=== PATIENT | female | born 1945 | race Caucasian/White ===

== ENCOUNTER 2016-08-05 10:55 | Observation (INO) | payer OTHER ==
--- NOTE | 2016-08-02 10:51 | CPEKG ---
Heart Rate: 59 RR Interval: 1017 P-R Interval: 172 QRSD Interval: 84 QT Interval: 452 QTC Interval: 448 P [place]: 19 QRS [place]: -14 T Wave [place]: 38 EKG Severity - NORMAL ECG - EKG Impression: SINUS RHYTHM Electronically Signed By: Malick Ramos 02-Aug-2016 15:42:31
[2016-08-05] MEDS ORDERED: LR 1,000 ML IV ONE (11:44)
[2016-08-05] MEDS ORDERED: LIDOCAINE 1% 5 ML SDV ID PRN (11:44)
[2016-08-05] MEDS ORDERED: SILVER NITRATE APPLICATOR 1 APPL TP ONE (12:46)
[2016-08-05] MEDS ORDERED: BUPIVACAINE 0.25% 30 ML SDV ONE (12:46)
[2016-08-05] MEDS ORDERED: MIDAZOLAM 2 MG/2 ML VIAL ONE (12:49)
[2016-08-05] MEDS ORDERED: GLYCOPYRROLATE 0.2 MG/1 ML VIAL ONE (12:51)
[2016-08-05] MEDS ORDERED: LIDOCAINE 2% 5 ML SDV ONE (12:51)
[2016-08-05] MEDS ORDERED: ROCURONIUM 100 MG/10 ML VIAL ONE (12:52)
[2016-08-05] MEDS ORDERED: fentaNYL 100 MCG/2 ML INJ ONE ×2 (12:53→14:18)
[2016-08-05] MEDS ORDERED: PROPOFOL 200 MG/20 ML VIAL ONE (12:53)
[2016-08-05] MEDS ORDERED: ONDANSETRON 4 MG/2 ML VIAL ONE (13:21)
[2016-08-05] MEDS ORDERED: DEXAMETHASONE 4 MG/ML VIAL ONE (13:22)
[2016-08-05] MEDS ORDERED: SURGIFLO MATRIX KIT WITH THROMBIN TP ONE (14:15)
[2016-08-05] MEDS ORDERED: ONDANSETRON 4 MG/2 ML VIAL IVP PRN (17:32)
[2016-08-05] MEDS ORDERED: HYDROCODONE/APAP 5/325 TAB PO PRN (17:32)
[2016-08-05] MEDS ORDERED: ONDANSETRON DISINTEGRATING 4 MG TAB PO PRN (17:32)
[2016-08-05] MEDS ORDERED: LR 1,000 ML IV SCH (18:00)
--- NOTE | 2016-08-05 20:22 | GOP ---
[f rep st] OPERATIVE REPORT DATE OF OPERATION: 08/05/2016 SURGEON: Belkys Crabtree MD STITCH BONDING MACHINE TENDER HELPER: Cha Graff MD. PREOPERATIVE DIAGNOSIS: Complex left ovarian cyst. POSTOPERATIVE DIAGNOSIS: Complex left ovarian cyst. PROCEDURE PERFORMED: Laparoscopic bilateral salpingo-oophorectomy. FINDINGS: 1. Exam under anesthesia revealed an anteverted uterus and no adnexal masses. 2. Intraoperative findings revealed a normal appearing right ovary and right fallopian tube and a normal appearing left fallopian tube. The left ovary was slightly increased in size and lobular appearing. Her uterus appeared normal. Of note, there were some darker spots within the right broad ligament and infundibulopelvic ligament which initially were thought to be dilated veins. However, during transection of the infundibulopelvic ligament, these lesions were inspected and they appeared to extrude a dark brown substance suspicious for endometriosis. SPECIMENS: Bilateral ovaries and fallopian tubes. ESTIMATED BLOOD LOSS: Less than 20 cc. INDICATIONS: Patient is a 70-year-old, menopausal female, who was found to have a complex left ovarian cyst measuring approximately 3 x 4 cm. She had preoperative CA-125 which was normal. She agreed to surgical removal of the left ovary, and desired removal of the right ovary as well. She had preoperative evaluation clearance by her primary care provider, Dr. Elkin Caraballo. DESCRIPTION OF PROCEDURE: The patient was taken to the operating room, where general anesthesia was found to be adequate. Patient was prepared and draped in normal sterile fashion in the dorsal lithotomy position. A single sided speculum was placed in the patient's vagina, and a single-tooth tenaculum was placed on the anterior lip of the cervix. A Yesy uterine manipulator was placed in the patient's cervix to provide a means to manipulate the uterus. Attention was then turned to the patient's abdomen where local anesthetic with a mixture of 0.25% Marcaine plain was injected in the patient's umbilicus. A vertical incision was made in the patient's umbilicus. A Veress needle was placed through this incision into the peritoneal cavity, and entry into the peritoneal cavity was confirmed with use of a water-filled syringe. The Veress needle was then attached to the CO2 gas, appropriate entry CO2 gas pressures were noted, and the abdomen was insufflated with gas until a pressure of 15 mmHg was obtained. The Veress needle was then removed, and a 10 mm trocar was placed through this incision into the peritoneal cavity under direct visualization with an Optiview trocar. The attention was then turned to the patient's left side, and she was placed in Trendelenburg positioning. A 5 mm skin incision was made after placement of local anesthetic approximately 2-3 cm superior and anterior to the anterior iliac spine on the left side. A 5 mm trocar was placed through this incision into the peritoneal cavity under direct visualization. In a similar fashion, on the right side, a 5 mm skin incision was made. A 5mm trocar was placed through the incision into the peritoneal cavity under direct visualization. The patient was then placed into further Trendelenburg positioning, and the pelvis and abdomen were surveyed. It was difficult to get the bowel to stay out of the deep pelvis, and her uterus was very small deep in the pelvis. Therefore, decision was made to place another trocar in the midline in order to have better use of instrumentation to keep the bowel out of the pelvis during the surgery. Another 5 mm incision was placed 2 cm above the pubic symphysis in the midline. The use of anesthetic was used here as well. A 5 mm trocar was placed through this incision and into the peritoneal cavity under direct visualization. The bowel was then held out of the pelvis with a blunt probe. The right fallopian tube was grasped and the tube and ovary were elevated. An attempt was made to visualize the ureter, but it was difficult to see, due to increased fat under the peritoneal layer. The infundibulopelvic ligament was grasped, cauterized, and transected with the PK Gyrus. The infundibulopelvic ligament was then completely transected with the Gyrus, and the ovary and tube were then excised from their attachments from the mesosalpinx and the utero- ovarian ligament. It was detached from all its attachments, and hemostasis was assured. The 10 mm scope was switched out for a 5 mm scope. The EndoCatch bag was placed through the 10 mm port, and the tube and ovary were removed through the umbilical 10 mm incision without complications. The trocar was then replaced easily, and attention was then turned to the patient's left side. Once again, the blunt probe was used to gently hold the bowel out of the way, away from the area of dissection on the left side. The left fallopian tube was grasped, and the tube and ovary elevated. The left ureter was visualized clearly. The infundibular ligament was clamped, coagulated, and transected. The tube and ovary were then removed from all of its attachments along the mesosalpinx and the utero-ovarian ligament on the left side. Hemostasis was clearly visualized along these pedicles. During this dissection, there was some bright red bleeding noted in the pelvis underneath this area of dissection , and it was clear that this bleeding was not coming from the pelvic ligaments that were just transected as there was no bleeding noted from the pedicles. Careful inspection was completed, and it was noted that there was a very small tear in the mesentery of the small bowel on the left side that was initially bleeding. It was bleeding very slowly, and the decision was made to remove the left tube and ovary which was completed using an EndoCatch bag with no complications. Of note, during the removal of the left ovary, it was removed through the umbilical incision, and in order to get it through the incision, it was drained within the EndoCatch bag using a 10 cc syringe and appropriate needle. The fluid drained from the cyst was also sent for cytology. The fascial incision was extended slightly with the angel scissors inferiorly, and then the specimen was removed. After removal, the trocar was replaced and pelvis surveyed. On reinspection of the area that had started to have a small amount of bleeding around the mesentery of the bowel, the decision was made to have an intraoperative consult with Dr. Jyoti Hutchins. She was contacted and consulted. While waiting 10-15 minutes for her arrival, the area of concern had stopped bleeding. She arrived in the operating room and visualized the area of concern. She visualized the area clearly with us and indicated that there was no further action needed. We already had some Surgicel up on the operating room table, so decided to place this in this area to assure hemostasis. All pedicles were examined closely, and noted to be hemostatic. All trocars were then removed under direct visualization other than the umbilical port which was removed without any issues. The gas was allowed to escape from her abdomen. The fascia from the 10mm incision was closed with a running, locked stitch of 0-vicryl. All skin incisions were closed with 4-0 monocryl. Steri- Strips and bandage dressings were placed. All instruments were removed from the patient's vagina, and hemostasis was obtained at the tenaculum site with silver nitrate. All sponge, lap, and needle counts correct x2. Patient was transferred to the PACU in stable good condition. INTRAOPERATIVE DIRECTOR GLOBAL: Dr. Jyoti Hutchins. COMPLICATIONS: None. DRAINS: None. IV FLUIDS: 600 cc. URINE OUTPUT: 75 cc. /[id number]/MODL MTDD
[2016-08-06] MEDS: KETOROLAC 15 MG/1 ML SDV IVP SCH ×4 (03:18→11:13)
[2016-08-06 06:20] LABS: HEMOGLOBIN 13.9 g/dL (12.6-16.3)
--- NOTE | 2016-08-06 08:44 | SOAPPROG ---
SOAP Progress Note Assessment/Plan: Assessment: 70 y/o POD#1 s/p L/S BSO - hemodynamically stable and doing well Plan: 1) Routine postop care 2) O2 sats - weaning off O2. Only on 1L per NC now. Will wean off O2 and discharge home if able to wean off and keep normal O2 sats on RA. 3) RX for pain (motrin and norco) already given 4) Discharge home pending O2 sat evaluation, and f/u in 4-5 days. Pain/bleeding /fever precautions 08/06/16 08:41 Subjective: Pt ambulating, voiding spontaneously, pain well controlled with only gas-x, and no complaints. No SOB/chest pain/leg pain. Objective: Vital Signs Temp Pulse Resp BP Pulse Ox 36.1 C 62 16 140/76 H 95 08/06/16 06:00 08/06/16 06:00 08/06/16 06:00 08/06/16 06:00 08/06/16 06:00 Laboratory Results 08/06/16 06:00 08/05/16 08/06/16 08/07/16 05:59 05:59 05:59 Intake Total 1500 Output Total 670 Balance 830 Physical Exam - Physical Exam General Appearance: WD/WN, alert, no apparent distress Respiratory: lungs clear Cardiac/Chest: regular rate, rhythm Abdomen: normal bowel sounds, non-tender, soft, other (incisions: bandages c/d/i ) Pelvic Exam: deferred ICD10 Worksheet Patient Problems: Problems Problem Status Diagnosed S/P BSO (status post bilateral salpingo-oophorectomy) Acute - ICD10 Problem Qualifiers (1) S/P BSO (status post bilateral salpingo-oophorectomy)
[2016-08-06 11:26] VITALS: BP 147/72; PULSE 68; RESP 19; TEMP 97.2; O2SAT 93
[2016-08-06] MEDS ORDERED: PNEUMOC 13-VAL CONJ-DIP CRM/PF 0.5 ML SYR IM ONE (13:23)
[2016-08-06] MEDS ORDERED: IBUPROFEN 600 MG TAB PO SCH (17:35)
== END 2016-08-06 14:20 | disposition home or self-care (01) ==
LOC: FSGY 10:55 → F3E 17:32 → FOB 18:30
PROVIDERS: ADMIT Obstetrics & Gynecology; ATTEND Obstetrics & Gynecology
PROC: 0UT74ZZ Resection of Bilateral Fallopian Tubes, Percutaneous Endoscopic Approach (ICD-10-PCS; principal; 2016-08-05 12:30)
PROC: 0UT24ZZ Resection of Bilateral Ovaries, Percutaneous Endoscopic Approach (ICD-10-PCS; principal; 2016-08-05 12:30)
DX: N83.202 Unspecified ovarian cyst, left side (principal); G35 Multiple sclerosis; Z23 Encounter for immunization
CPT/HCPCS: 58661; 88305; 88307; 90670; 93005; G0009; J1100; J1885; J2250; J2405; J2704; J3010

== ENCOUNTER 2016-08-12 18:19 | Emergency (ER) | payer OTHER ==
[2016-08-12 18:29] VITALS: TEMP 99.7; O2SAT 94
--- NOTE | 2016-08-12 19:09 | EDPHY ---
HPI/HX/ROS/PE/MDM Narrative: Chief complaint: Fever, cough, surgical site infection HPI: This is a 70-year-old woman who is status post bilateral oophorectomy for what turned out to be benign cysts by Dr. Crabtree 7 days ago. Since discharge she has had a persistent dry cough with occasional white heel sputum. She has been taking Mucinex for this with some relief. Two days ago she was noted to have a temperature of 99.7. She spoke with the on-call for Dr. edmonds was instructed to take acetaminophen and continue the Mucinex and follow up with Dr. edmonds should the symptoms persist. Yesterday she was feeling well but did have a temperature to 99. Today she had a follow-up with Dr. edmonds was noted to have an infection at her surgical site was started on Keflex. This afternoon she developed a temperature to 101. Has not had any chest pain or shortness of breath. No nausea vomiting or diarrhea. Has redness around her incision site but no discharge. She does state that she did have a pneumonia shot on the day of discharge after her surgery. She has had her flu shot this year. ROS: 10 point Review of Systems is negative except as noted in the HPI. Physical exam: Gen: Awake, Alert, No Distress HEENT: Nose: no rhinorrhea Eyes: PERRLA, EOMI Mouth: Moist mucosa Neck: Supple, no JVD Chest: nontender, lungs clear to auscultation Heart: S1, S2 normal, no murmur Abd: Soft, for surgical incisions. The umbilical is erythematous with demarcations from earlier today with the erythema spreads beyond this. There is mild fluctuance. There is no discharge or dehiscence. Remainder abdominal exam is completely soft and benign. Back: no CVA tenderness, no midline tenderness Ext: no edema, non-tender Skin: no rash Neuro: CN II-XII intact, Sensation grossly intact, Strength 5/5 in bilateral upper and lower extremities ED Course: CXR: Impression: 1. No evidence for pneumonia or source for fever identified. 2. Chronic cardiomegaly without cardiac decompensation. Dictated By: Tyrone Day MD CBC is normal, urinalysis is consistent with infection but there are some epithelial cells. Chest x-ray is negative. D-dimer is noted to be elevated which I would expect secondary to her surgery but her respiratory symptoms are concerning for the possibility of a PE. I have discussed with her and with Dr. edmonds. They agree that we will obtain a CT scan her chest to rule out PE. I have done a bedside ultrasound which shows no evidence of a collection. CT chest shows no evidence of PE. There is some coronary artery disease in the LAD. There is an anterior mediastinal soft tissue cystic mass which measures 3.6 cm. This is unchanged from an MRI from a year ago which was read as a likely benign cystic mass at that time. This study was interpreted by Dr. Day. I have discussed with Dr. Crabtree, patient's OBGYN. She is in agreement with the plan a given there is no focal source of infection other than the cellulitis at the incision site found will continue with oral antibiotics. Will add on Bactrim for MRI say coverage. Patient is otherwise well-appearing with no white count at this time. There is equivocal urinalysis which will be covered with the Keflex she is taking already. Urine culture has been sent. She will follow up with Dr. Crabtree at noon tomorrow for re-evaluation. - Data Points Laboratory Results: Laboratory Results 08/12/16 19:10 08/12/16 19:10 08/12/16 08/12/16 08/12/16 19:30 19:20 19:10 WBC 7.16 10^3/uL (3.80-9.50) RBC 4.36 10^6/uL (4.18-5.33) Hgb 12.1 L g/dL (12.6-16.3) Hct 35.7 L % (38.0-47.0) MCV 81.9 fL (81.5-99.8) MCH 27.8 L pg (27.9-34.1) MCHC 33.9 g/dL (32.4-36.7) RDW 14.6 % (11.5-15.2) Plt Count 270 10^3/uL (150-400) MPV 10.6 fL (8.7-11.7) Neut % (Auto) 63.4 % (39.3-74.2) Lymph % (Auto) 21.1 % (15.0-45.0) Riley % (Auto) 13.7 H % (4.5-13.0) Eos % (Auto) 1.1 % (0.6-7.6) Baso % (Auto) 0.4 % (0.3-1.7) Nucleat RBC Rel Count 0.0 % (0.0-0.2) Absolute Neuts (auto) 4.54 10^3/uL (1.70-6.50) Absolute Lymphs (auto) 1.51 10^3/uL (1.00-3.00) Absolute Monos (auto) 0.98 H 10^3/uL (0.30-0.80) Absolute Eos (auto) 0.08 10^3/uL (0.03-0.40) Absolute Basos (auto) 0.03 10^3/uL (0.02-0.10) Absolute Nucleated RBC 0.00 10^3/uL (0-0.01) Immature Gran % 0.3 % (0.0-1.1) Immature Gran # 0.02 10^3/uL (0.00-0.10) D-Dimer 1.48 H ug/mLFEU (0.00-0.50) Sodium 137 mEq/L (134-144) Potassium 3.9 mEq/L (3.5-5.2) Chloride 105 mEq/L (97-110) Carbon Dioxide 22 mEq/l (22-31) Anion Gap 10 mEq/L (8-16) BUN 21 mg/dL (7-23) Creatinine 0.7 mg/dL (0.6-1.0) Estimated GFR > 60 Glucose 92 mg/dL (70-100) Calcium 9.2 mg/dL (8.5-10.4) Urine Color YELLOW Urine Appearance MODERATELY TURBID Urine pH 5.0 (5.0-7.5) Ur Specific [place] 1.034 H (1.002-1.030) Urine Protein 1+ H (NEGATIVE) Urine Ketones NEGATIVE (NEGATIVE) Urine Blood 2+ H (NEGATIVE) Urine Nitrate NEGATIVE (NEGATIVE) Urine Bilirubin NEGATIVE (NEGATIVE) Urine Urobilinogen NEGATIVE EU (0.2-1.0) Ur Leukocyte Esterase 2+ H (NEGATIVE) Urine RBC 50-182 H /hpf (0-3) Urine WBC 50-182 H /hpf (0-3) Ur Epithelial Cells 1+ /lpf (NONE-1+) Urine Bacteria 1+ H /hpf (NONE SEEN) Urine Mucus 1+ /lpf (NONE-1+) Urine Glucose NEGATIVE (NEGATIVE) Influenza A & B (PCR) NEGATIVE FOR FLU (NEGATIVE) General Time Seen by Provider: 08/12/16 18:43 Initial Vital Signs: Initial Vital Signs Temperature (C) 37.6 C 08/12/16 18:23 Heart Rate 92 08/12/16 18:23 Respiratory Rate 18 08/12/16 18:23 Blood Pressure 162/75 H 08/12/16 18:23 O2 Sat (%) 94 08/12/16 18:23 O2 Delivery Mode Room Air Allergies/Adverse Reactions: No Known Allergies Allergy (Unverified 10/21/14 14:56) Home Medications: Medication Instructions Recorded Carvedilol [Coreg (*)] 6.25 mg PO BIDMEAL 07/28/16 Omeprazole 20 mg PO DAILY 07/28/16 amLODIPine BESYLATE [Norvasc 2.5 2.5 mg PO BID 07/28/16 mg (*)] Ibuprofen [Motrin (*)] 600 mg PO Q6HRS #0 tab 08/06/16 Aspirin EC [Aspirin EC 81 mg (*)] 81 mg PO DAILY 08/12/16 Cephalexin [Keflex (*)] 500 mg PO Q6H 08/12/16 Darifenacin Hydrobromide [Enablex] 15 mg PO HS 08/12/16 Escitalopram Oxalate [Lexapro] 5 mg PO DAILY 08/12/16 Interferon Beta-1B [Betaseron] 0.3 mg SQ Q48H 08/12/16 Simvastatin [Zocor] 20 mg PO HS 08/12/16 Departure - Departure Disposition: Home, Routine, Self-Care Clinical Impression: Fever Condition: Good Instructions: Fever in Adults (ED), Cellulitis (ED) Additional Instructions: Please follow up with Cardiology for further evaluation of the abnormal findings on her CT scan of her coronary artery disease. Follow up with Dr. Crabtree at noon tomorrow. Take your Keflex and add on Bactrim for treatment of your cellulitis. Return to the emergency depart for increasing fevers or chills, worsening pain, opening of your wounds, or any other concerns. Referrals: Belkys Crabtree MD [Medical Doctor] - As per Instructions
[2016-08-12 19:23] LABS: % IMMATURE GRANULYOCYTES 0.3 % (0.0-1.1); ABSOLUTE IMMATURE GRANULOCYTES 0.02 10^3/uL (0.00-0.10); ADD DIFF? NO; ADD MORPH? NO; ADD SCAN? NO; ATYPICAL LYMPHOCYTE FLAG 20 (0-99); FRAGMENT RBC FLAG 0 (0-99); HEMATOCRIT 35.7 % (38.0-47.0); HEMOGLOBIN 12.1 g/dL (12.6-16.3); LEFT SHIFT FLG 0 (0-99); LIPEMIA HEMOLYSIS FLAG 90 (0-99); MEAN CELL HEMOGLOBIN 27.8 pg (27.9-34.1); MEAN CELL HEMOGLOBIN CONCENTR. 33.9 g/dL (32.4-36.7); MEAN CELL VOLUME 81.9 fL (81.5-99.8); MEAN PLATELET VOLUME 10.6 fL (8.7-11.7); PLATELET CLUMPS FLAG 10 (0-99); PLATELET COUNT 270 10^3/uL (150-400); RED BLOOD CELL COUNT 4.36 10^6/uL (4.18-5.33); RED CELL DISTRIBUTION WIDTH 14.6 % (11.5-15.2)
--- NOTE | 2016-08-12 19:32 | DX ---
Chest, PA and Lateral History: Fever and cough, postoperative, possible infection of surgical incision below naval COMPARISON: 05/26/15 and 03/27/15 Findings: There is mild cardiomegaly and normal pulmonary vascularity. Perihilar bronchial wall thick ening is chronic or recurrent and suggest underlying COPD considering the mildly prominent lung volum es. There is no focal infiltrate, consolidation or pleural effusion. There is stable atherosclerotic calcification of a normal sized abdominal aorta. Impression: 1. No evidence for pneumonia or source for fever identified. 2. Chronic cardiomegaly without cardiac decompensation.
[2016-08-12 19:37] LABS: ANION GAP 10 mEq/L (8-16); CALCIUM 9.2 mg/dL (8.5-10.4); CARBON DIOXIDE 22 mEq/l (22-31); CHLORIDE 105 mEq/L (97-110); CREATININE 0.7 mg/dL (0.6-1.0); GLOMERULAR FILTRATION RATE > 60; GLUCOSE 92 mg/dL (70-100); POTASSIUM 3.9 mEq/L (3.5-5.2); SODIUM 137 mEq/L (134-144)
[2016-08-12 19:38] LABS: COLOR YELLOW; LEUKOCYTE ESTERASE,URINE 2+ (NEGATIVE); NITRITE,URINE NEGATIVE (NEGATIVE)
[2016-08-12 19:40] LABS: BACTERIA 1+ /hpf (NONE SEEN); MUCUS 1+ /lpf (NONE-1+); RBC,URINE 50-182 /hpf (0-3); WBC,URINE 50-182 /hpf (0-3)
[2016-08-12] MEDS ORDERED: IOPAMIDOL (ISOVUE 370) 100 ML BTL IV ONE (20:18)
--- NOTE | 2016-08-12 22:09 | CT ---
Chest CT With IV Contrast , 21:11 History: Elevated d-dimer, abdominal surgery one week ago, chest pain, possible pulmonary embolism. Technique: Ultrafast ultrathin [address] obtained through the chest after bolus administra tion of 90 mL of Isovue 370 nonionic contrast without complication. Soft tissue and bone window evalu ation is performed. Dose reduction techniques were utilized. Comparison: Chest x-ray earlier at 18:49 CT Chest: Findings: There is a 2.5 x 2.9 cm anterior mediastinal solid mass with average Hounsfield units 55. T his was demonstrated to be cystic on an MRI of the chest in May 2015. There is no other mediasti nal or hilar adenopathy. There is no axillary or internal mammary adenopathy. There is no evidence of pneumonia, pleural effusion or pneumothorax. Heart size is normal and there is no pericardial effusi on. There is LAD coronary artery disease. The thoracic aorta is normal in size and associated with so me mild mural atherosclerotic disease, but no evidence for dissection. Incidentally noted is a single small calcified granuloma in the left lower lobe. Limited scans through the upper abdomen are negati ve. Impression: 1. LAD coronary artery disease. 2. Solid anterior mediastinal mass. Not significantly changed in size since MRI of the chest June 06, 2015. CT Pulmonary Angiogram: Technique: Multiplanar and 3D reconstructions are reviewed on an independent 3D workstation. Findings: No filling defects or mural thickening is detected. Specifically, no evidence for pulmonary embolism. Right-sided heart chambers are not dilated and the interventricular septum has normal morp hology. 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 Impression: No evidence for pulmonary embolic disease. Results discussed with Dr. Zelaya at 10:04 PM. General information for patients regarding this examination can be found at [email or web address]. If you have questions or comments about this report, please contact me at [phone] (hospital) or [phone] (cell).
[2016-08-12] MEDS ORDERED: SULFAMET/TMP DS PREPACK#2 BTL TAKEHOME ONE (22:28)
[2016-08-12 22:30] VITALS: BP 155/98; PULSE 78; RESP 16
== END 2016-08-12 22:46 | disposition home or self-care (01) ==
DX: R50.9 Fever, unspecified (principal); Z79.82 Long term (current) use of aspirin
CPT/HCPCS: 71020; 71275; 99285; Q9967

== ENCOUNTER 2016-08-16 18:28 | Inpatient (IN) | payer OTHER ==
[2016-08-16] MEDS ORDERED: ACETAMINOPHEN 325 MG TAB PO PRN (18:52)
[2016-08-16] MEDS ORDERED: IBUPROFEN 200 MG TAB PO PRN (18:52)
[2016-08-16] MEDS ORDERED: PROMETHAZINE HCL 25 MG TAB PO PRN (18:52)
[2016-08-16] MEDS ORDERED: HYDROCODONE/APAP 5/325 TAB PO PRN (18:52)
[2016-08-16] MEDS ORDERED: diphenhydrAMINE 25 MG CAP PO PRN (18:52)
--- NOTE | 2016-08-16 19:56 | GHP ---
[f rep st] HISTORY AND PHYSICAL DATE OF ADMISSION: 08/16/2016 CHIEF COMPLAINT: Leakage of drainage from her incision. HISTORY OF PRESENT ILLNESS: The patient is a 70-year-old, 3, para 2, abortus 1, menopausal female who presents postoperatively after a laparoscopic bilateral salpingo-oophorectomy on August 05, 2016, with complaints of drainage from her incision. She has been seen twice in clinic since her surgery on August 12 and and diagnosed with a wound infection. She was initially started on Keflex antibiotics for erythema and induration around the incision. At that time, she had not yet had any fevers postoperatively. She subsequently had a fever to 101F within 24 hours of starting the Keflex. She went to the emergency room for evaluation on the and she was afebrile at that time, and had a negative workup to include normal serum labs showing a normal white blood cell count and normal chest x-ray, and a negative CT scan of her chest that was negative for a pulmonary embolism. She was given the addition of Bactrim to take orally to cover the risk of possible MRSA infection. She subsequently reported doing well over the next 3 days, until the day of admission, when she reports that she woke up with noted drainage from her incision. She reports that it is not purulent and that it is brownish red in color. She denies having any fevers since her ER visit and since starting the Bactrim. She reports that her incision is not significantly improving but it is not painful to the point of requiring pain medications. She has no other complaints. She denies any shortness of breath, chest pain, or leg pain. She is ambulating without difficulty, and denies any bowel or bladder changes. REVIEW OF SYSTEMS: Negative other than what was mentioned in the history of present illness. PAST MEDICAL HISTORY: Multiple sclerosis, diverticulosis and history of ischemic colitis in 2001, hypertension, Graves disease, and depression. PAST SURGICAL HISTORY: History of total knee replacement in 2011 and her recent laparoscopic bilateral salpingo-oophorectomy. FAMILY HISTORY: Not contributory. SOCIAL HISTORY: Patient has a history of tobacco use but quit. She is and not sexually active. She has 2 children and her daughter lives locally. PHYSICAL EXAMINATION: VITAL SIGNS: Blood pressure 146/74, pulse 80, temperature 97.7 degrees Fahrenheit. GENERAL: No acute distress. Well-developed, well-nourished female. RESPIRATORY: Clear to auscultation bilaterally. CARDIOVASCULAR: Regular rate and rhythm. ABDOMEN: The patient is obese. Her lateral and lower incisions are all clean, dry, and intact. The Steri-Strips were removed. Her umbilical incision is erythematous, indurated with an area of erythema measuring approximately 4-5 cm in diameter. It is not significantly changed from last week and, in fact, there appears to be slight blotching of the skin inferiorly on the diagonal toward her right side. The incision had a Steri-Strip over it and that was removed. The wound culture was obtained from the serosanguineous drainage that was present. There was a very little amount of fluid noted and the area is not fluctuant to palpation. There was a small amount of oozing of dark brown, watery fluid that was wiped away with a gauze. The incision itself was probed and there was no opening of the incision present. Careful attention was made to visualize the inferior aspect of the incision and deep in the umbilicus and there was no visible opening that could be probed or appeared to need to be opened further. Silver nitrate was applied to the surface where there was a small amount of pink granulation tissue that was deep in the umbilicus. No further bleeding or drainage was noted. ASSESSMENT: Patient is a 70-year-old female, postop day #11 status post a laparoscopic bilateral salpingo-oophorectomy complicated by a wound infection that has failed outpatient medical management. PLAN: 1. Admit for observation and possible further inpatient care if needed. 2. Antibiotic coverage: Consulted Infectious Disease physician on-call, Dr. Harrison Huntley, for his recommendations for the ideal antibiotic choice. He discussed the plan for initiating vancomycin. We will initiate IV vancomycin and await Gram stain, culture results. 3. History of hypertension. Will continue her home medications. No acute issues. 4. History of multiple sclerosis, no acute issues. 5. Acid reflux. We will continue her proton pump inhibitor. 6. DVT prophylaxis with SCDs. 7. Counseling. The patient was counseled regarding the plan of care and all questions were answered. Offered to speak with her daughter and she reports she will call her herself today and I indicated I was available if desired to discuss her situation. /[id number]/MODL MTDD
[2016-08-16] MEDS: CARVEDILOL 6.25 MG TAB PO SCH (21:46)
[2016-08-16] MEDS: FAMOTIDINE 20 MG TAB PO SCH (21:46)
[2016-08-16 22:22] LABS: % IMMATURE GRANULYOCYTES 0.3 % (0.0-1.1); ABSOLUTE IMMATURE GRANULOCYTES 0.02 10^3/uL (0.00-0.10); ADD DIFF? NO; ADD MORPH? NO; ADD SCAN? YES; FRAGMENT RBC FLAG 0 (0-99); HEMATOCRIT 34.6 % (38.0-47.0); HEMOGLOBIN 11.5 g/dL (12.6-16.3); LEFT SHIFT FLG 0 (0-99); LIPEMIA HEMOLYSIS FLAG 80 (0-99); MEAN CELL HEMOGLOBIN 28.1 pg (27.9-34.1); MEAN CELL HEMOGLOBIN CONCENTR. 33.2 g/dL (32.4-36.7); MEAN CELL VOLUME 84.6 fL (81.5-99.8); MEAN PLATELET VOLUME 10.3 fL (8.7-11.7); PLATELET CLUMPS FLAG 0 (0-99); PLATELET COUNT 283 10^3/uL (150-400); RED BLOOD CELL COUNT 4.09 10^6/uL (4.18-5.33); RED CELL DISTRIBUTION WIDTH 14.8 % (11.5-15.2)
[2016-08-16 22:23] LABS: ATYPICAL LYMPHOCYTE FLAG 100 (0-99)
[2016-08-16 22:48] LABS: ANION GAP 11 mEq/L (8-16); CALCIUM 8.9 mg/dL (8.5-10.4); CARBON DIOXIDE 23 mEq/l (22-31); CHLORIDE 104 mEq/L (97-110); CREATININE 0.9 mg/dL (0.6-1.0); GLOMERULAR FILTRATION RATE > 60; GLUCOSE 104 mg/dL (70-100); POTASSIUM 3.8 mEq/L (3.5-5.2); SODIUM 138 mEq/L (134-144)
[2016-08-16] MEDS: VANCOMYCIN 1 GM in NS 250 ML IV SCH (23:10)
[2016-08-17 01:03] LABS: SCAN NEGATIVE
[2016-08-17 06:02] LABS: % IMMATURE GRANULYOCYTES 0.3 % (0.0-1.1); ABSOLUTE IMMATURE GRANULOCYTES 0.02 10^3/uL (0.00-0.10); ADD DIFF? NO; ADD MORPH? NO; ADD SCAN? NO; ATYPICAL LYMPHOCYTE FLAG 70 (0-99); FRAGMENT RBC FLAG 0 (0-99); HEMATOCRIT 35.6 % (38.0-47.0); HEMOGLOBIN 12.3 g/dL (12.6-16.3); LEFT SHIFT FLG 0 (0-99); LIPEMIA HEMOLYSIS FLAG 90 (0-99); MEAN CELL HEMOGLOBIN 28.9 pg (27.9-34.1); MEAN CELL HEMOGLOBIN CONCENTR. 34.6 g/dL (32.4-36.7); MEAN CELL VOLUME 83.6 fL (81.5-99.8); MEAN PLATELET VOLUME 10.4 fL (8.7-11.7); PLATELET CLUMPS FLAG 0 (0-99); PLATELET COUNT 315 10^3/uL (150-400); RED BLOOD CELL COUNT 4.26 10^6/uL (4.18-5.33); RED CELL DISTRIBUTION WIDTH 14.9 % (11.5-15.2)
[2016-08-17 06:21] LABS: ANION GAP 10 mEq/L (8-16); CALCIUM 9.4 mg/dL (8.5-10.4); CARBON DIOXIDE 22 mEq/l (22-31); CHLORIDE 110 mEq/L (97-110); CREATININE 0.8 mg/dL (0.6-1.0); GLOMERULAR FILTRATION RATE > 60; GLUCOSE 91 mg/dL (70-100); POTASSIUM 4.7 mEq/L (3.5-5.2); SODIUM 142 mEq/L (134-144)
[2016-08-17] MEDS ORDERED: CARVEDILOL 3.125 MG TAB PO SCH (08:00)
[2016-08-17] MEDS: FAMOTIDINE 20 MG TAB PO SCH (09:09)
[2016-08-17] MEDS: MULTIVITAMINS 1 EACH TAB PO SCH (09:09)
[2016-08-17] MEDS: CARVEDILOL 6.25 MG TAB PO SCH ×3 (09:09→23:15)
[2016-08-17] MEDS: VANCOMYCIN 1 GM in NS 250 ML IV SCH ×2 (10:46→23:00)
[2016-08-17 18:18] VITALS: RESP 18
--- NOTE | 2016-08-17 18:26 | SOAPPROG ---
SOAP Progress Note Assessment/Plan: Assessment: 70 y/o female POD#12 (HD#2) s/p L/S BSO complicated by wound cellulitis and hematoma - hemodynamically stable and afebrile Plan: 1) Wound cellulitis: Gram stain and wound culture #[address] Hardin showed gram + cocci, gram+ rods and +PMNs; prelim = mixed positive growth. Will continue w/ vancomycin until final results are back. 2) Wound hematoma: Wound opened this AM w/ probing. Continue packing & dressing changes TID for now. 3) HTN - mild elevations, stable, continue home meds. 4) DVT prophylaxis w/ SCDs and ambulation 5) Counseling: Counseled patient regarding the diagnosis, plan of care. Called her daughter, Romina Fraire, and left her a voicemail regarding patient's status (w/ patient's permission). 08/17/16 18:29 Subjective: Pt reports feeling well this morning. She reports the wound is still draining mostly brown tinged fluid. No fevers, chills, shortness of breath, chest pain or leg pain. She denies any pain around the incision. Not needing pain medication. Objective: Vital Signs Temp Pulse Resp BP Pulse Ox 36.7 C 71 18 150/63 H 94 08/17/16 16:00 08/17/16 16:00 08/17/16 16:00 08/17/16 16:00 08/17/16 16:00 Laboratory Results 08/17/16 04:58 08/17/16 04:58 08/16/16 08/17/16 08/18/16 05:59 05:59 05:59 Intake Total 270 Balance 270 - Time Spent With Patient Time Spent With Patient: 30 minutes - Pending Discharge Pending Discharge Within 48 Hours: Yes Pending Discharge Date: 08/19/16 Pending Discharge Time: 11:00 Physical Exam - Physical Exam General Appearance: WD/WN, alert, no apparent distress Respiratory: lungs clear Cardiac/Chest: regular rate, rhythm Abdomen: normal bowel sounds, non-tender, soft, other (umbilical incision: erythema and induration improved, incision probed w/ a Q-tip, and it opened with dark blood noted. Sterile q-tip used to probe incision. Fascia intact. Defect approx. 1.5 inches deep, 1cm wide. Packed w/ iodoform gauze and dressed. ) ICD10 Worksheet Patient Problems: Problems Problem Status Diagnosed S/P BSO (status post bilateral salpingo-oophorectomy) Acute
[2016-08-17] MEDS ORDERED: ENABLEX PO SCH (21:00)
[2016-08-17] MEDS ORDERED: ATORVASTATIN CALCIUM 10 MG TAB PO SCH (21:00)
[2016-08-17 23:28] VITALS: O2SAT 93
[2016-08-18 05:24] LABS: % IMMATURE GRANULYOCYTES 0.3 % (0.0-1.1); ABSOLUTE IMMATURE GRANULOCYTES 0.02 10^3/uL (0.00-0.10); ADD DIFF? NO; ADD MORPH? NO; ADD SCAN? NO; ATYPICAL LYMPHOCYTE FLAG 30 (0-99); FRAGMENT RBC FLAG 0 (0-99); HEMATOCRIT 36.4 % (38.0-47.0); HEMOGLOBIN 12.4 g/dL (12.6-16.3); LEFT SHIFT FLG 0 (0-99); LIPEMIA HEMOLYSIS FLAG 90 (0-99); MEAN CELL HEMOGLOBIN 28.4 pg (27.9-34.1); MEAN CELL HEMOGLOBIN CONCENTR. 34.1 g/dL (32.4-36.7); MEAN CELL VOLUME 83.5 fL (81.5-99.8); MEAN PLATELET VOLUME 10.1 fL (8.7-11.7); PLATELET CLUMPS FLAG 10 (0-99); PLATELET COUNT 320 10^3/uL (150-400); RED BLOOD CELL COUNT 4.36 10^6/uL (4.18-5.33); RED CELL DISTRIBUTION WIDTH 14.6 % (11.5-15.2)
[2016-08-18 05:40] LABS: ANION GAP 9 mEq/L (8-16); CALCIUM 9.7 mg/dL (8.5-10.4); CARBON DIOXIDE 23 mEq/l (22-31); CHLORIDE 108 mEq/L (97-110); CREATININE 0.7 mg/dL (0.6-1.0); GLOMERULAR FILTRATION RATE > 60; GLUCOSE 100 mg/dL (70-100); POTASSIUM 4.2 mEq/L (3.5-5.2); SODIUM 140 mEq/L (134-144)
[2016-08-18] MEDS: MULTIVITAMINS 1 EACH TAB PO SCH (08:49)
[2016-08-18] MEDS: CARVEDILOL 6.25 MG TAB PO SCH (08:50)
[2016-08-18] MEDS ORDERED: FAMOTIDINE 20 MG TAB PO SCH (09:00)
[2016-08-18 09:13] VITALS: BP 165/75; PULSE 72; TEMP 98
--- NOTE | 2016-08-18 11:57 | GCON ---
[f rep st] CONSULTATION INFECTIOUS DISEASE CONSULTATION DATE OF CONSULTATION: 08/18/2016 REASON FOR CONSULTATION: Wound infection not responding to IV antibiotics. HISTORY OF PRESENT ILLNESS: A 70-year-old postmenopausal woman who recently underwent laparoscopic bilateral salpingo-oophorectomy on August 05, 2015 with negative pathology, whose current problems date back to approximately August 10 when she noticed increasing pain associated with her wound. The patient was subsequently seen in followup on the and started on oral Keflex. She continued to have malaise and subsequently developed a temperature to approximately 100 and it was recommended that she go to the emergency room for further evaluation. She did so on 08/12/2016. In the ER, she underwent blood cultures, CT PE, urinary analysis, and a bedside ultrasound. The CT PE was negative, blood cultures were negative, urine culture was negative, and patient was discharged on additional antibiotic of Bactrim. Subsequently, she noticed discharge from her wound which developed on 08/16/2016 and was seen by both her primary care and Gynecology on that same day. Subsequently, wound cultures were obtained and patient was admitted and placed on IV antibiotics. She had minimal improvement after the 1st day of IV antibiotics and yesterday evening wound was opened further. Today, patient reports significant improvement with decreasing pain. No further fever since hospitalization. PAST MEDICAL HISTORY: 1. Multiple sclerosis diagnosed in 1988, has intermittently used Solu-Medrol, but is maintain on beta interferon. 2. Diverticulosis. 3. History of ischemic colitis in 2009. 4. Hypertension. 5. Graves disease. 6. Depression. PAST SURGICAL HISTORY: Total knee replacement in 2011 and surgery as per HPI. ALLERGIES: NKDA. MEDICATIONS: Vancomycin 1 g IV q.12, [place] as needed, Norvasc 2.5 twice daily, Lipitor 10 mg p.o. q.h.s., Coreg 6.25 p.o. b.i.d., Pepcid 20 mg daily, Motrin as needed, multivitamin daily, Phenergan as needed. The patient received her 1st dose of IV vancomycin 08/16/2016 at 11:00 a.m. FAMILY HISTORY: Reviewed and noncontributory. SOCIAL HISTORY: She moved to the [facility] 4 years ago. She is , not sexually active. She has adult children. Remote history of tobacco. REVIEW OF SYSTEMS: A complete 10-point review of systems was performed and is negative, except as mentioned in the HPI or below. Patient had 1 loose bowel movement, but that has since resolved. PHYSICAL EXAM: VITAL SIGNS: Blood pressure 165/75, heart rate 72, respiratory rate 18, saturation 93% on room air, temperature 36, 7/10, T-max was 37.6, otherwise afebrile. GENERAL: This is a nontoxic-appearing woman sitting up in bed, in no acute distress with fluent speech. HEENT: No conjunctival hemorrhages. Oropharynx: Moist mucous membranes. Good dentition. No oral lesions. NECK: Supple. No lymphadenopathy. CARDIOVASCULAR: Regular rate and rhythm. No murmurs. CHEST: Clear to auscultation bilaterally. ABDOMEN: Obese, soft, nontender. Bowel sounds were present. She had a 2 to 2.5 cm incision at the umbilicus that had been opened. Packing had some serosanguineous drainage, but was not saturated at the time of my exam. The wound tracks about 2 cm medially and 2.5 cm to the left. Some mild induration in the lower part of the wound, but the erythema is almost completely resolved. Minimal tenderness to palpation. EXTREMITIES: No clubbing, cyanosis, or edema. She has good pedal pulses. NEUROLOGIC: She is alert and oriented x4. Moving all 4 extremities equally. LABORATORY: White count 7, hematocrit 36, platelets of 320, 51% neutrophils, 37 % lymphocytes. Influenza swab was negative. Creatinine 0.7. Urinalysis from 08/12/2016 showed 50-182 RBCs and 50-182 WBCs, but as per HPI, urine culture was negative. Wound culture from the shows 3+ GPCs, 1+ gram-positive rods on the Gram stain, and culture is growing mixed cutaneous florencia. Wound culture, later that day, is pending. ASSESSMENT AND PLAN: This is a 70-year-old woman who recently underwent a laparoscopic bilateral salpingo-oophorectomy for complex left ovarian cyst with negative pathology, who subsequently developed cellulitis and wound abscess/ infected hematoma postoperatively. Patient with significant improvement after wound was opened yesterday evening. Suspect lack of improvement was due to abscess versus infected hematoma, and now that that is evacuated, we see clinical improvement. Will follow cultures, but reasonable to transition patient to Bactrim alone after receiving her 11:00 a.m. vancomycin dose. I would treat the patient for another 5-7 days and continue packing as recommended by Gynecology. No ID followup needed unless problems arise. Thank you for this consultation. /[id number]/MODL MTDD
[2016-08-18] MEDS: VANCOMYCIN 1 GM in NS 250 ML IV SCH (11:58)
--- NOTE | 2016-08-18 14:16 | PDIAF ---
- Diagnosis Diagnosis: post-op incision infection Code Status: Full Code - Medication Management Discharge Medications: Medications to Continue on Transfer Carvedilol [Coreg (*)] 12.5 mg PO BIDMEAL 07/28/16 [Last Taken 08/16/16] Omeprazole 20 mg PO DAILY 07/28/16 [Last Taken 08/16/16] amLODIPine BESYLATE [Norvasc 2.5 mg (*)] 2.5 mg PO BID 07/28/16 [Last Taken ] Aspirin EC [Aspirin EC 81 mg (*)] 81 mg PO DAILY 08/12/16 [Last Taken 08/16/16] Cephalexin [Keflex (*)] 500 mg PO Q6H 08/12/16 [Last Taken 08/16/16] Darifenacin Hydrobromide [Enablex] 15 mg PO HS 08/12/16 [Last Taken 08/15/16] Escitalopram Oxalate [Lexapro] 5 mg PO DAILY 08/12/16 [Last Taken 08/16/16] Interferon Beta-1B [Betaseron] 0.3 mg SQ Q48H 08/12/16 [Last Taken 08/15/16] Simvastatin [Zocor] 20 mg PO HS 08/12/16 [Last Taken 08/15/16] Sulfamethox/Tmp 800/160 mg [Bactrim DS] 1 tab PO BID #14 tab 08/12/16 [Last Taken 08/16/16] Ibuprofen [Motrin (*)] 600 mg PO Q6HRS PRN 08/16/16 [Last Taken Unknown] Discharge Medications: Refer to the Discharge Home Medication list for PRN reason. PICC Care - Routine: N/A - Orders Services needed: Home Care, Registered Nurse Home Care Face to Face: I certify that this patient was under my care and that I had the required [id number] encounter meeting the encounter requirements on the discharge day. My findings support the fact that the patient is homebound as defined in CMS Chapter 7 Medicare Benefits Manual 30.1.1, The condition of the patient is such that there exists a normal inability to leave home and consequently, leaving home would require a considerable and taxing effort. Isolation Type: none Oxygen: none Diet Recommendation: no restrictions on diet Diet Texture: Regular Texture Diet Tube feeding: no Weigh Patient: N/A [place]: No Wound Care Instructions: Patient needs her incision packed with fresh iodoform gauze daily until wound is too small to pack further. Thank you. Activity/Weight Bearing Restrictions: No restrictions. Put tegaderm on for showering. - Follow Up Care Current Providers and Referrals: Patient,NotPresent [Primary Care Provider] -
--- NOTE | 2016-08-18 14:51 | SOAPPROG ---
SOAP Progress Note Assessment/Plan: Assessment: Post-op incisional hematoma/cellulitis, now resolving after IV abx and drainage Pt afebrile, no pain Had one loose BM yesterday, now having formed stool again today Plan: Patient seen by ID today, recommend discharge home with continued packing 1x/day , and Bactrim DS 1 tab BID x 5 days given the ongoing induration. See discharged summary Please note this is a late entry progress note, pt was seen at 0830 this morning , and then again at 1330 this afternoon. 08/18/16 14:47 08/18/16 14:50 Subjective: No pain. Had one loose BM yesterday, this has been going on for a few months, but then formed this morning. Tolerating regular diet. Voiding spontaneously. Walked around halls, just mild fatigue but otherwise feeling really well. No fevers/chills. Objective: Vital Signs Temp Pulse Resp BP Pulse Ox 36.7 C 72 18 165/75 H 93 08/18/16 08:00 08/18/16 08:00 08/18/16 08:00 08/18/16 08:00 08/18/16 08:00 Laboratory Results 08/18/16 04:54 08/18/16 04:54 08/17/16 08/18/16 08/19/16 05:59 05:59 05:59 Intake Total 270 Balance 270 Gen: NAD Resp: unlabored CV: RRR Abd: soft, nontender Incision: marked reduction in erythema from previously drawn boundaries. Ongoing moderate induration around incision, no fluctuance. incision packed with iodoform gauze. Ext: no edema, pulses normal ICD10 Worksheet Patient Problems: Problems Problem Status Diagnosed S/P BSO (status post bilateral salpingo-oophorectomy) Acute
--- NOTE | 2016-08-18 14:52 | PDDCSUM ---
Discharge Summary Discharge Summary: Date of admission: 08/16/16 Date of discharge: 08/18/16 Admitting diagnosis: Post-operative incisional cellulitis, not improving with outpatient antibiotics Discharge diagnosis: Resolving wound cellulitis and incisional hematoma Consults: Infectious disease Procedures: None Condition at discharge: Good Disposition: Home Follow-up: Dr. Crabtree in 7 days; home nurse follow-up for wound care HPI/hospital course: Pt had cellulitis at her umbilical incision after a laparoscopic BSO, and had also developed fevers. A work-up was negative and she was started on outpatient bactrim and keflex. However, her symptoms continued to worsen and the wound started draining, and the decision was made to admit to the hospital for IV antibiotics. She was admitted and started on IV vancomycin as recommended by infectious disease.On HD#2 the wound opened and was probed at the bedside and some dark blood was removed, consistent with a hematoma. The fascia was noted to be intact. The opening was packed with iodoform gauze. On HD #3 the cellulitis had receded dramatically. The patient stayed afebrile throughout her hospital course. On HD#3 she was seen by infectious disease who recommended discharge home with outpatient Bactrim DS BID x 5 days, and continued daily packing of the wound. This was coordinated with home health as the patient did not feel comfortable doing it on her own. Discharge instructions: Continue to pack wound daily with iodoform gauze until too small to pack Take antibiotics for 5 days Follow-up with Dr. Crabtree as scheduled Call the office for any fevers, chills, pain, worsening redness or drainage of incision. Medications to Continue on Transfer Carvedilol [Coreg (*)] 12.5 mg PO BIDMEAL 07/28/16 [Last Taken 08/16/16] Omeprazole 20 mg PO DAILY 07/28/16 [Last Taken 08/16/16] amLODIPine BESYLATE [Norvasc 2.5 mg (*)] 2.5 mg PO BID 07/28/16 [Last Taken ] Aspirin EC [Aspirin EC 81 mg (*)] 81 mg PO DAILY 08/12/16 [Last Taken 08/16/16] Darifenacin Hydrobromide [Enablex] 15 mg PO HS 08/12/16 [Last Taken 08/15/16] Escitalopram Oxalate [Lexapro] 5 mg PO DAILY 08/12/16 [Last Taken 08/16/16] Interferon Beta-1B [Betaseron] 0.3 mg SQ Q48H 08/12/16 [Last Taken 08/15/16] Simvastatin [Zocor] 20 mg PO HS 08/12/16 [Last Taken 08/15/16] Sulfamethox/Tmp 800/160 mg [Bactrim DS] 1 tab PO BID #14 tab 08/12/16 [Last Taken 08/16/16] Ibuprofen [Motrin (*)] 600 mg PO Q6HRS PRN 08/16/16 [Last Taken Unknown] Discharge Medications Discharge Inpatient Discharge Date/Time: Inpatient Discharge Disposition: Inpatient Discharge Comment: Observation Discharge Date/Time: Observation Discharge Disposition: Observation Discharge Comment: Instructions: Sulfamethoxazole/Trimethoprim (By mouth) Wound Infection (DC) Prescriptions:
== END 2016-08-18 15:48 | disposition home health service (06) | DRG 863 ==
LOC: F3E 19:13 → OBSVTOIN 08-17 09:30
PROVIDERS: ADMIT Obstetrics & Gynecology; ATTEND Obstetrics & Gynecology
DX: T81.4XXA Infection following a procedure, initial encounter (principal); L76.32 Postprocedural hematoma of skin and subcutaneous tissue following other procedure; L03.316 Cellulitis of umbilicus; G35 Multiple sclerosis; I10 Essential (primary) hypertension; E05.00 Thyrotoxicosis with diffuse goiter without thyrotoxic crisis or storm; F32.9 Major depressive disorder, single episode, unspecified; Z96.659 Presence of unspecified artificial knee joint; Z87.891 Personal history of nicotine dependence
CPT/HCPCS: 99000-PO; G0378; G0379; G0463-PO; J3370

== ENCOUNTER → 2016-10-08 | Outpatient (CLI) | payer OTHER | LOC: FIMAGING 10:43 | PROVIDERS: ATTEND Obstetrics & Gynecology | DX: M81.0 Age-related osteoporosis without current pathological fracture (principal); R10.2 Pelvic and perineal pain ==

== ENCOUNTER → 2016-10-11 | Outpatient (CLI) | payer OTHER | LOC: BHFA 08:30 | PROVIDERS: ATTEND Internal Medicine | DX: I77.9 Disorder of arteries and arterioles, unspecified (principal) ==

== ENCOUNTER → 2016-10-11 | Outpatient (CLI) | payer OTHER ==
[~2016-10-11] MED LIST: REGADENOSON 0.4 MG/5 ML SYR IVP ONE
--- NOTE | 2016-10-11 13:21 | PDCARST ---
CAR Stress Test Results Type of Stress Test: Lexiscan stress test Indication: CAD Description of Procedure: After informed consent was obtained, pt was established to ECG, bp, oximetry, and HR monitoring. At b/l, pt is in SR with BP 120/80, HR 80, and O2 sat wnl. Lexiscan was infused with typical side effects. No significant changes to ECG, bp, HR, or oximetry. Impression: Uneventful Lexiscan infusion Conclusion: Await nuclear images.
== END ==
LOC: FIMAGING 09:16
PROVIDERS: ATTEND Internal Medicine Cardiovascular Disease
PROC: C22G1ZZ Tomographic (Tomo) Nuclear Medicine Imaging of Myocardium using Technetium 99m (Tc-99m) (ICD-10-PCS; principal; 2016-10-11)
DX: I25.10 Atherosclerotic heart disease of native coronary artery without angina pectoris (principal)
CPT/HCPCS: 78452; 93017; A9500; J2785

== ENCOUNTER → 2017-01-17 | Outpatient (CLI) | payer OTHER ==
[~2017-01-17] MED LIST changes: +IOPAMIDOL (ISOVUE-300) 100 ML BTL ONE; -REGADENOSON 0.4 MG/5 ML SYR IVP ONE
[2017-01-17 16:49] LABS: CREATININE 0.9 mg/dL (0.6-1.0); GLOMERULAR FILTRATION RATE > 60
== END ==
LOC: FIMAGING 15:53
PROVIDERS: ATTEND Internal Medicine Gastroenterology
DX: R10.2 Pelvic and perineal pain (principal); K57.30 Diverticulosis of large intestine without perforation or abscess without bleeding; R59.0 Localized enlarged lymph nodes
CPT/HCPCS: 74177; Q9967

== ENCOUNTER → 2017-05-10 | Outpatient (CLI) | payer OTHER | LOC: FIMAGING 15:13 | PROVIDERS: ATTEND Internal Medicine Pulmonary Disease | DX: Q34.1 Congenital cyst of mediastinum (principal); R91.1 Solitary pulmonary nodule; I25.10 Atherosclerotic heart disease of native coronary artery without angina pectoris; Z87.891 Personal history of nicotine dependence ==

== ENCOUNTER → 2017-05-18 | Outpatient (CLI) | payer OTHER ==
[~2017-05-18] MED LIST changes: +GADOBUTROL 10 ML VIAL IVP ONE; -IOPAMIDOL (ISOVUE-300) 100 ML BTL ONE
== END ==
LOC: FIMAGING 12:09
DX: M50.221 Other cervical disc displacement at C4-C5 level (principal); M48.02 Spinal stenosis, cervical region; M46.92 Unspecified inflammatory spondylopathy, cervical region; G35 Multiple sclerosis
CPT/HCPCS: 70553; 72156; A9585

== ENCOUNTER → 2017-07-02 | Outpatient (CLI) | payer OTHER | LOC: FIMAGING 11:30 | PROVIDERS: ATTEND Obstetrics & Gynecology | DX: Z12.31 Encounter for screening mammogram for malignant neoplasm of breast (principal) | CPT/HCPCS: G0202 ==

== ENCOUNTER → 2017-08-17 | Outpatient (CLI) | payer OTHER | LOC: FIMAGING 16:23 | PROVIDERS: ATTEND Neurological Surgery | DX: M54.5 Low back pain (principal); G35 Multiple sclerosis; M43.16 Spondylolisthesis, lumbar region; R29.2 Abnormal reflex; M51.36 Other intervertebral disc degeneration, lumbar region; M51.37 Other intervertebral disc degeneration, lumbosacral region; M48.061 Spinal stenosis, lumbar region without neurogenic claudication ==

== ENCOUNTER → 2017-11-08 | Outpatient (CLI) | payer OTHER | LOC: BMCIMAGING 10:23 | PROVIDERS: ATTEND Internal Medicine Rheumatology | DX: Z13.820 Encounter for screening for osteoporosis (principal); M81.0 Age-related osteoporosis without current pathological fracture; M85.89 Other specified disorders of bone density and structure, multiple sites; G35 Multiple sclerosis ==

== ENCOUNTER → 2018-05-18 | Outpatient (CLI) | payer OTHER | LOC: FIMAGING 12:23 | DX: G35 Multiple sclerosis (principal) | CPT/HCPCS: 70553; 72156; A9585 ==

== ENCOUNTER → 2018-08-26 | Outpatient (CLI) | payer OTHER | LOC: FIMAGING 14:57 | PROVIDERS: ATTEND Obstetrics & Gynecology | DX: Z12.31 Encounter for screening mammogram for malignant neoplasm of breast (principal) ==